=== PATIENT | female | born 1950 | race Caucasian/White ===

== ENCOUNTER → 2017-08-08 | Outpatient (CLI) | payer BC ==
[2015-08-13 15:07] VITALS: BP 105/58
[~2017-08-08] MED LIST: ACET325T9 PO; ASPI-482 PO; DEXA1TAB PO; EZET10TA18 PO; GADOBUTROL 7.5 MMOL/7.5 ML VIAL IV ONE; LEVE500T56 PO; PRAV10TA2 PO; PRAV20TA2 PO; PRAV40TA2 PO
--- NOTE | 2017-08-08 15:44 | KCIC ---
MRI Brain with and without contrast History: Benign neoplasm of brain, dizziness, tumor resection Technique: Multiplanar, multi sequential pre and postcontrast MR imaging was performed of the brain. Contrast: 6 cc Gadavist Comparison: August 07, 2016 Findings: There again has been left frontal parietal craniotomy. There is again extra-axial enhancing mass along the posterior left falx near the vertex up to 3.3 cm AP by 2 cm transverse by 1.7 cm cc, not significantly changed. Adjacent T2 and FLAIR hyperintense abnormality centered in the left frontal parietal lobes is similar. Other minimal T2 and FLAIR hyperintense signal near frontal horns is unchanged. There is right parietal developmental venous anomaly. There is no new midline shift, intra-axial mass effect, or extra-axial fluid collection. There is no evidence of recent infarct. There is preservation of the major arterial flow voids at the skull base. Mastoid air cells are aerated. There is again small mucous retention cyst of the anterior right sphenoid sinus. There is patchy minimal ethmoid air cell mucosal thickening. Cerebellar tonsils are normal in location. There is preservation of the marrow signal of the clivus. Impression: 1. Intracranial findings are unchanged, stable extra-axial enhancing mass along the posterior left falx near the vertex compatible with residual meningioma. Associated gliosis of the left frontal parietal lobes about resection cavity is unchanged. Electronically signed by: Lorenzo Mancilla MD (08/08/2017 3:41 PM) [facility]-KCIC[facility]
== END | disposition home or self-care (01) ==
LOC: KCIC MRI 14:12
PROVIDERS: ATTEND Neurological Surgery
DX: D33.2 Benign neoplasm of brain, unspecified (principal); G93.89 Other specified disorders of brain; G93.0 Cerebral cysts; R42 Dizziness and giddiness
CPT/HCPCS: 70553; 82565

== ENCOUNTER → 2019-07-16 | Outpatient (CLI) | payer BC ==
[2015-08-13 15:07] VITALS: BP 105/58
[~2019-07-16] MED LIST changes: +CALC-98 PO; +FLAX1CAP PO; -GADOBUTROL 7.5 MMOL/7.5 ML VIAL IV ONE; +GARL1000 PO
--- NOTE | 2019-07-16 23:13 | CONS ---
DATE OF CONSULTATION: 07/15/2019 REFERRING PHYSICIAN: LORENZO SHAFFER M.D. 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 She then had stage I adenocarcinoma of the left breast, status post resection in 10/1998 followed by a final boost dose of 60 Gy of left breast radiation completed in 01/1999. Since that time, she has been followed without recurrence. She now has mammographic and MRI evidence for regional recurrence in the right lateral breast. She has a high desire for breast preservation in this situation of likely disease recurrence. We were asked to see her regarding adjuvant radiation following anticipated local excision. ICD-10: C50.412, C50.811. HISTORY OF PRESENT ILLNESS: The patient has a prior history of bilateral breast carcinomas as summarized above. She did well following her treatment and feels well. She is active in daily life. She has no restrictions. She and her live a vigorous life at home and are now replacing on their own all of their windows of their home. She has no breast-related symptoms. She underwent recent screening mammography on 06/08/2019. This revealed a new spiculated area of nodular right outer mid breast. Ultrasonography revealed a 1.0 x 0.5 x 0.9 cm irregular hypoechoic mass. There was a small adjacent hypoechoic nodule 1 cm from the larger mass measuring 0.5 x 0.3 x 0.6 cm suggestive of multicentric disease. Biopsy was recommended. She underwent MRI imaging of the breasts on 07/07/2019. This revealed a 1.1-cm irregular mass at the 8 o'clock right breast, highly suspicious for malignancy were 2 smaller satellite masses extending anteriorly from the dominant mass measuring 5 and 4 mm in size, suspicious for satellite malignancy, greatest AP dimension from the posterior aspect of the dominant mass to the most anterior satellite mass measured 3.3 cm. No MRI evidence of multicentric right breast disease and no MRI evidence for left breast malignancy. She has now been seen by Dr. Shaffer who recommended salvage mastectomy. She is strongly interested in less surgery and would like to have breast preservation at this time. PAST MEDICAL HISTORY: Remarkable for hyperlipidemia. She had a grade 1 meningioma of the left parietal lobe and underwent parietal craniotomy and resection in 08/2015, residual disease along the sagittal sinus was not resected and she has had stable postoperative MRI imaging through the last image in 2017 along with modest right-sided hemiparesis, chiefly affecting her right leg. ALLERGIES: MORPHINE CAUSES NAUSEA AND VOMITING. MEDICATIONS: Baby aspirin, Zetia, pravastatin. FAMILY HISTORY: Maternal grandmother had colon carcinoma. No family history of breast carcinoma. SOCIAL HISTORY: for 50 years, 2 adult children, 1 living nearby and 1 in [place], [place]. 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 She has a distant history of smoking, quit 25 years ago. She denies significant alcohol use. PHYSICAL EXAMINATION: GENERAL: Revealed a pleasant woman in no acute distress. VITAL SIGNS: Weight 156 pounds, blood pressure 122/72, pulse oximetry on room air 98%. HEENT: Unremarkable. She had excellent dentition. LYMPH NODES: She had no palpable cervical, supraclavicular, axillary adenopathy. Arms had full range of motion. No arm edema. BREASTS: Revealed incision in the upper outer quadrant of the left breast and inferior aspect of the right breast. Breast appeared normal and no stigmata from previous radiation was visible. No telangiectatic , fibrotic or atrophic skin changes were noted. Palpation of both breasts were unremarkable. No masses or tenderness. No induration, no fibrotic changes. EXTREMITIES: Revealed no clubbing, cyanosis or edema. NEUROLOGIC: Revealed diffuse subtle weakness of the right leg. ASSESSMENT AND PLAN: In summary, my impression is that of bilateral stage 1 adenocarcinomas of both breast treated in 1995 and in 1998 with no relapse until new evidence for such relapse in the right breast on mammography, ultrasonography and MRI. The MRI was reviewed. The presence of satellite disease is immediately abutting the primary disease and appears resectable with a single lumpectomy. There is data from several institutions of salvage treatment with breast preservation in this situation performing lumpectomy followed by partial breast radiation therapy. The outcomes have been good with acceptable risk of toxicity and local disease control. I did outline that the standard of care remains mastectomy, but the data for breast preservation does exist when the patient is insistent in pursuing this treatment for salvage as a preferred alternative mastectomy. In the event, she has a second relapse of disease, mastectomy can be reconsidered in the future with no detrimental effect on her overall survival. Re-irradiation has some risk for increasing fibrotic change and/or telangiectatic skin changes, but this is an acceptable risk as reflected in the literature available. She will now return to Dr. Lorenzo Shaffer to consider conservative breast resection with clear margin. Following this, her tumor size and receptor status will be evaluated to ascertain her need for systemic chemotherapy. If chemotherapy is indicated, it will be pursued prior to adjuvant radiation therapy. I anticipate that she will see either Dr. Espinosa or Rocky after resection in consultation regarding adjuvant systemic treatment. Thank you again for allowing us to participate in her evaluation. MARCUS AQUINO MD DR: CALLIE/roseline JOB#: [id number] / [id number] cc MARIE GLASS M.D. MTDD
== END | disposition home or self-care (01) ==
LOC: ONC 23:13
PROVIDERS: ATTEND Radiology Radiation Oncology
DX: Z08 Encounter for follow-up examination after completed treatment for malignant neoplasm (principal); C50.412 Malignant neoplasm of upper-outer quadrant of left female breast; C50.811 Malignant neoplasm of overlapping sites of right female breast; D33.2 Benign neoplasm of brain, unspecified
CPT/HCPCS: G0463

== ENCOUNTER → 2019-07-28 | Outpatient (CLI) | payer BC ==
[2015-08-13 15:07] VITALS: BP 105/58
[~2019-07-28] MED LIST changes: +DOCU-150 PO; -EZET10TA18 PO; +EZET10TA20 PO; +OXYC1TAB15 PO
[2019-07-28 12:22] LABS: BASO % 1 % (0-3); EOS % 1 % (0-3); HEMATOCRIT 41.8 % (36.0-47.0); HEMOGLOBIN 14.2 g/dL (12.0-15.5); LYMPH # 1.7 x10^3/uL (1.0-4.8); LYMPH % 32 % (24-48); MEAN CORPUSCULAR HEMOGLOBIN 30 pg (25-35); MEAN CORPUSCULAR HGB CONC 34 g/dL (31-37); MEAN CORPUSCULAR VOLUME 89 fL (79-100); MONO # 0.4 x10^3/uL (0.0-1.1); MONO % 7 % (0-9); NEUT # 3.1 x10^3/uL (1.8-7.7); NEUT % 59 % (31-73); PLATELET COUNT 224 x10^3/uL (140-400); RED BLOOD COUNT 4.71 x10^6/uL (3.50-5.40); RED CELL DISTRIBUTION WIDTH 13.2 % (11.5-14.5); WHITE BLOOD COUNT 5.2 x10^3/uL (4.0-11.0)
[2019-07-28 12:25] LABS: ALBUMIN 4.2 g/dL (3.4-5.0); CALCIUM 9.1 mg/dL (8.5-10.1); CREATININE 0.9 mg/dL (0.6-1.0); GFR 62.5; POTASSIUM 4.4 mmol/L (3.5-5.1)
== END | disposition home or self-care (01) ==
LOC: SURGPAT 11:28
PROVIDERS: ATTEND Surgery
DX: Z01.818 Encounter for other preprocedural examination (principal); C50.911 Malignant neoplasm of unspecified site of right female breast; Z88.5 Allergy status to narcotic agent
CPT/HCPCS: 36415; 80048; 82040; 85025

== ENCOUNTER → 2019-07-30 | Outpatient (CLI) | payer BC ==
[2015-08-13 15:07] VITALS: BP 105/58
--- NOTE | 2019-07-30 09:53 | KCIC ---
EXAMINATION: Magnetic resonance imaging (MRI) of the brain and brainstem without contrast 07/30/2019 8:45 AM HISTORY: Benign neoplasm status post resection. TECHNIQUE: Multiplanar multi-weighted MRI of the brain and brainstem was performed without intravenous contrast using the general brain protocol. COMPARISON: MRI brain 08/08/2017 FINDINGS: Left parietal craniotomy changes are identified for resection of a extra-axial mass. There is a persistent extra-axial mass with T1 and T2 isointense signal characteristics abutting the left parafalcine falx measuring approximately 2.9 x 1.3 cm, not significantly changed since prior examination from 08/08/2017. Adjacent cystic cavity and gliosis appears similar. The superior sagittal sinus demonstrates normal venous flow. The corpus callosum is normal in shape and signal intensity. The posterior fossa is unremarkable. The pituitary and sella are normal. The brainstem and craniocervical junction are unremarkable. There are T2/FLAIR signal hyperintense foci in the periventricular and subcortical white matter most suggestive of mild chronic small vessel ischemic changes. Diffusion weighted images reveal no hyperintensities to suggest acute cerebral infarction. Susceptibility artifact is identified along the left parietal craniotomy site suggestive of residual hemosiderin. The ventricles are normal in size and position without evidence of hydrocephalus. There is a tiny mucus retention cyst in the right sphenoid sinus. The visualized portions of the mastoids are unremarkable. The orbits appear normal. Normal flow voids are demonstrated in the carotid arteries and basilar artery. IMPRESSION: Postoperative changes are identified from left frontal craniotomy with residual or recurrent disease identified along the left midline falx in the left parietal region measuring 2.9 x 1.3 cm. Findings are not significantly changed since the prior examination when measured in similar dimensions. Superior sagittal sinus flow void is maintained. Electronically signed by: Yuridia Polanco MD (07/30/2019 9:50 AM) [facility]
== END | disposition home or self-care (01) ==
LOC: KCIC MRI 08:30
PROVIDERS: ATTEND Family Medicine
DX: J34.1 Cyst and mucocele of nose and nasal sinus (principal); D32.0 Benign neoplasm of cerebral meninges; Z98.890 Other specified postprocedural states
CPT/HCPCS: 70551

== ENCOUNTER → 2019-08-04 | Day surgery (SDC) | payer BC ==
[~2019-08-04] VITALS: Ht 167.6 cm; Wt 70.0 kg
[~2019-08-04] MED LIST changes: +BUPIVACAINE MPF 0.5% 30 ML VIAL. ONE; +BUPIVACAINE-EPI 0.5%-1:200000 MPF 30 ML VIAL. INJ ONE; +DEXAMETHASONE SOD PHOS 4 MG/ML VIAL ONE; +ISOSULFAN BLUE 50 MG/5 ML VIAL. SQ ONE; +IV RINGERS,LACTATED 1000ML 1,000 ML IV SCH; +LIDOCAINE 1% PF 2 ML VIAL. ID PRN; +LIDOCAINE 2% PF 5 ML VIAL. ONE; +MIDAZOLAM HCL/PF 2 MG/2 ML VIAL. ONE; +ONDANSETRON PF 4 MG/2 ML VIAL. IV PRN; +ONDANSETRON PF 4 MG/2 ML VIAL. ONE; +PROCHLORPERAZINE 10 MG/2 ML VIAL. IV PRN; +PROPOFOL 20 ML IV ONE; +SEVOFLURANE 61 TO 120 MINUTES. IH ONE; +ePHEDrine PF IN SALINE 50 MG/10 ML SYRINGE. IV ONE; +fentaNYL PF VIAL 100 MCG/2 ML VIAL IV PRN; +fentaNYL PF VIAL 100 MCG/2 ML VIAL ONE
--- NOTE | 2019-08-04 11:55 | RAD ---
DATE: 08/04/2019 EXAM: DIGITAL DIAGNOSTIC RT, US GUID NDL PLACE/ASPI/BX HISTORY: Right breast mass COMPARISON: Mammogram 06/08/2019, ultrasound right breast 06/08/2019 This study was interpreted with the benefit of Computerized Aided Detection (CAD). Procedure: Risks and benefits were discussed with the patient after which informed consent was obtained. Patient was placed supine on the examination table with the right breast exposed. Site was marked under ultrasound guidance. Site prepped and draped in normal sterile fashion. 1% lidocaine was administered for superficial anesthetic effect. A 5 cm Kopans needle was inserted into the right breast at 8:00 position. The needle traverses the irregular right breast mass and terminates at the margin of a satellite nodule extending from a lateral to medial approach. Distance between the right breast mass and satellite nodule is approximately 6.5 mm in antiradial projection. The distal most portion of the wire is approximately 2.5 mm from the margin of the satellite nodule. The right breast mass is identified along the course of the wire beginning approximately 1.8 cm from the distal margin of the wire. CC and MLO views of the right breast were obtained. The proximal second portion of the wire corresponds with right breast mass on both CC and MLO projections. IMPRESSION: Successful wire localization of right breast mass and satellite nodule. BI-RADS CATEGORY: 4 SUSPICIOUS ABNORMALITY- BIOPSY SHOULD BE CONSIDERED RECOMMENDED FOLLOW-UP: SURG SURGICAL CONSULTATION Mammography is a sensitive method for finding small breast cancers, but it does not detect them all and is not a substitute for careful clinical examination. A negative mammogram does not negate a clinically suspicious finding and should not result in delay in biopsying a clinically suspicious abnormality. "Our facility is accredited by the [employer] Mammography Program."
--- NOTE | 2019-08-04 13:50 | DISCH ---
DISCHARGE INSTRUCTIONS Condition on Discharge Condition on Discharge: Stable Activity After Discharge Activity Instructions for Disc: Activity as tolerated, Avoid exertion Lifting Instructions after Dis: No heavy lifting Driving Instructions after Dis: Do not drive today Diet after Discharge Diet after Discharge: Regular Additional Diet Restrictions: resume home diet Wound Incision Care Wound/Incision Care: Ice to area for comfort, May get incision wet Other wound/incision instructi: may shower Friday Follow-Up Follow up with: Reymundo next week MARGRET SHAFFER MD Aug 04, 2019 13:49
--- NOTE | 2019-08-04 13:57 | RAD ---
Tissue specimen mammogram 08/04/2019 INDICATION: Post breast lumpectomy COMPARISON: Right mammogram 08/04/2019 TECHNIQUE: Single specimen radiograph is provided. FINDINGS: Localization wire as well as breast mass is identified along the thickened portion of the wire within the provided specimen. Mass is identified at D10 as well as another mass F 9.5. IMPRESSION: Radiographic specimen with wire localization and previously described mammographic masses. An addendum will be placed with pathology results when available.
--- NOTE | 2019-08-04 13:58 | PDOC ---
BRIEF OPERATIVE NOTE Date: Aug 04, 2019 Pre-Op Diagnosis invasive carcinoma right breast Post-Op Diagnosis same Procedure Performed excision right breast mass after localization Surgeon Reymundo Salcedo Anesthesia Type: General (LMA) Blood Loss 10cc IV Fluid 200cc Specimens Obtained right breast mass, 7:00 tissue lateral to # 1 Findings specimen radiograph contains area of concern Complications none Operative Note Wk # [id number] MARGRET SHAFFER MD Aug 04, 2019 13:58
[2019-08-04 14:00] VITALS: BP 120/65
--- NOTE | 2019-08-04 14:25 | OP ---
DATE OF SURGERY: 08/04/2019 PREOPERATIVE DIAGNOSIS: Invasive carcinoma, right breast. POSTOPERATIVE DIAGNOSIS: Invasive carcinoma, right breast. PROCEDURE: Excision of right breast mass after localization. SURGEON: Lorenzo Shaffer MD CUTTER HEAD SHARPENER: [place] Do ANESTHESIA: General LMA. ESTIMATED BLOOD LOSS: 10 mL. INTRAVENOUS FLUIDS: 200 mL. INDICATIONS: The patient is a 68-year-old who in 1995 and 1997 had invasive breast cancers, both on the right and then the left. She has recurrent mass on the right, which on biopsy was invasive carcinoma. She requested lumpectomy only. She is brought for same. OPERATIVE REPORT: The patient went to the mammography suite and had localization of some changes in her right breast. Then brought to the OR, given a general LMA and the right breast and arm were prepped and draped in usual sterile fashion. An elliptical incision in the lower outer quadrant that allowed access to the tissue localized by the wire was infiltrated with local, incised and dissection carried down to the localization wire, which was then delivered into the wound. The tissue surrounding the shoulder and tip of the wire was excised along with some tissue beyond the tip of the wire to try and address the second lesion. This was passed off the field and specimen radiograph confirmed the area of concern in the specimen. A small piece of tissue lateral to the original biopsy was harvested. When hemostasis was present and a correct sponge count obtained, the breast tissue was approximated with 3-0 Vicryl stitch. Skin closed with a subcuticular 4-0 Monocryl. Steri-Strips and sterile dressing applied. The patient was awakened from her anesthetic and taken to the recovery room in satisfactory condition. LORENZO SHAFFER MD DR: ASHLEY/roseline JOB#: [id number] / [id number]
--- NOTE | 2019-08-10 10:07 | PATHOLOGY ---
[facility] Accession Number: [id number] . 01 Material submitted: . PART A: breast - RIGHT BREAST MASS. Modifiers: right, 7:00 PART B: breast - BREAST TISSUE LATERAL TUMOR . 01 Clinical history: . Right breast cancer . 02 Diagnosis: A. Breast tissue, right breast mass at 7:00 wire localized lumpectomy: - Invasive ductal carcinoma, histologic Grade II, forming a mass having slightly irregular infiltrative margins measuring 1.0 cm in greatest dimension. - Tumor is focally less than 1 mm from the closest inked margin of excision. - Separate satellite focus of invasive ductal carcinoma, histologic Grade II, forming a mass measuring approximately 0.7 cm in greatest dimension. - Smaller mass is focally less than 1 mm from the closest inked margin of excision. - No lymphovascular tumor invasion identified. - Stromal fibrosis and mild duct ectasia, focal. . B. Breast tissue, lateral to tumor: - Focal coagulative changes and recent hemorrhage - negative for tumor. . (JPM:triston/hiren; 08/09/2019) MBR/08/09/2019 . 02 Comment: Sections of the larger breast mass reveal an invasive mammary carcinoma. The tumor shows little tubule formation, mild to focal moderate nuclear atypia, and focal presence of few mitotic figures. The morphologic findings are suppostive of the diagnosis of an invasive ductal carcinoma, histologic grade II. This mass is focally less than 1 mm from the closest inked margin of excision. There is no lymphovascular tumor invasion. There is a rare tumor calcification. . Sections of the smaller satellite nodule also show an invasive ductal carcinoma with similar histologic features. Breast prognostic studies will be obtained on the larger mass, the results of which will be reported separately. The case is also examined by Dr. Mckeon, who concurs with the diagnoses. (JPM:hiren; 08/09/2019) . 02 Electronically signed: . Feliciano Hunter MD, Pathologist NPI- [id number] . 01 Gross description: . The specimen is received in formalin, labeled "Kitty Camargo, right breast mass at 7:00", is a 19 g, unoriented, fibroadipose tissue with a needle wire in situ and measuring 7.3 x 4.5 x 1.0 cm. The specimen is inked black and serially sectioned from the protruding needle wire end into 16 slices (slice 1 = protruding needle wire and slice 16 = away from the protruding wire) to reveal an irregular brink-white mass measuring 1.0 x 1.0 x 0.6 cm in slice 5 and slice 6 with a hemorrhagic focus in the center consistent with previous biopsy site. In addition, there is a well circumscribed hernandez-white nodule measuring 0.7 x 0.4 x 0.3 cm in slice 7 and slice 8 approximately 0.6 cm from the mass. The mass abuts the closest black inked margin and the nodule abuts closest opposite margin. The remaining parenchyma is yellow lobulated with a hernandez-white fibrous strands interspersed in the ratio of 95:05. The specimen is entirely submitted as follows: A1. Slice 1, perpendicular sectioned. A2-A3. Slice 2 and 3, respectively. A4-A5. Slice 4, bisected. (Slice adjacent to mass) A6-A7. Slice 5, bisected. (A7 = mass) A8-A9. Slice 6, bisected. (A9 = mass) A10-A11. Slice 7, bisected. (A10 = nodule) A12-A13. Slice 8, bisected. (A12 = nodule) A14-A15. Slice 9, bisected. (Slice adjacent to nodule) A16-A17. Slice 10, bisected. A18. Slice 12 and slice 14. (Alternating uninvolved slices) A19. Slice 16, perpendicular sectioned. . Specimen excised at: 1317 on 08/04/19, placed in formalin at: 1350 on 08/04/19, formalin exposure: Approximately 33 hours and 40 minutes. . B. The specimen is received in formalin, labeled "Kitty Camargo, breast tissue lateral tumor", is an irregular fragment of hemorrhagic adipose tissue weighing 1 g and measuring 2.2 x 1.5 x 1.0 cm. The specimen is inked black and the serially sectioned to reveal a red hemorrhagic cut surface. The specimen is entirely submitted in B1-B2. . Specimen excised at: 1320 on 08/04/19, placed in formalin at: 1325 on 08/04/19, formalin exposure: Approximately 33 hours and 15 minutes. ([facility]; 08/05/2019) [facility] . 02 Pathologist provided ICD-10: C50.911 . 02 CPT . 993997, [id number] Specimen Comment: A courtesy copy of this report has been sent to Specimen Comment: [phone], , . Specimen Comment: Report sent to ,DR GLASS / DR RUVALCABA Specimen Comment: A duplicate report has been generated due to demographic updates. Performed at: 01 [facility] [address], [place], [place] [id number] MD Toy Ledezma MD Phone: [phone] Performed at: 02 [facility] [address], [place] [id number] MD Feliciano Hunter MD Phone: [phone]
== END | disposition home or self-care (01) ==
LOC: SURG 09:32
PROVIDERS: ATTEND Surgery
DX: D05.11 Intraductal carcinoma in situ of right breast (principal); F32.9 Major depressive disorder, single episode, unspecified; Z88.6 Allergy status to analgesic agent; Z79.82 Long term (current) use of aspirin; Z79.899 Other long term (current) drug therapy; Z98.890 Other specified postprocedural states; Z82.3 Family history of stroke; Z87.891 Personal history of nicotine dependence; Z90.12 Acquired absence of left breast and nipple
CPT/HCPCS: 19083; 19301; 77065; 88305; 88361; A7015; J0171; J0690; J1100; J2001; J2250; J2405; J2704; J3010; J3490; 76098; 76942; Q9968